=== PATIENT | male | born 1960 | race Caucasian/White ===

== ENCOUNTER 2016-08-04 19:36 | Emergency (ER) | payer SELFPAY ==
[~2016-08-04] VITALS: Ht 193 cm; Wt 117.9 kg
[2016-08-04 23:25] VITALS: BP 144/86
[2016-08-05] MEDS ORDERED: CYCLOBENZAPRINE HCL 10 MG TAB PO ONE
[2016-08-05] MEDS ORDERED: IBUPROFEN 600 MG TAB PO ONE
== END 2016-08-05 02:21 | disposition home or self-care (01) ==
LOC: ER 19:36
DX: S46.811A Strain of other muscles, fascia and tendons at shoulder and upper arm level, right arm, initial encounter (principal); S33.5XXA Sprain of ligaments of lumbar spine, initial encounter; V49.49XA Driver injured in collision with other motor vehicles in traffic accident, initial encounter; Y93.89 Activity, other specified; Y99.8 Other external cause status; Y92.410 Unspecified street and highway as the place of occurrence of the external cause

== ENCOUNTER 2017-10-22 22:31 | Inpatient (IN) | payer MEDICAID ==
[~2017-10-22] VITALS: Ht 193 cm; Wt 110.5 kg
[2017-10-22 23:10] LABS: Basophils # (auto) 0.1 uL; Basophils % (auto) 0.7 % (0.0-2.0); Eosinophils # (auto) 0.2 uL; Eosinophils % (auto) 1.6 % (0.0-7.0); Hemoglobin 17.4 g/dL (13.5-17.5); Lymphocytes # (auto) 3.5 uL; Lymphocytes % (auto) 35.7 % (10.0-50.0); Mean Corpuscular Hemoglobin 31.4 pg (28.0-32.0); Mean Corpuscular Hgb Conc. 34.9 g/dL (32.0-36.0); Monocytes # (auto) 0.6 uL; Monocytes % (auto) 6.3 % (0.0-12.0); Neutrophils # (auto) 5.5 uL; Neutrophils % (auto) 55.7 % (37.0-80.0); Nucleated Red Blood Cells % 0.2 %; Platelet Count (auto) 141 10^3/uL (140-450); Red Blood Cells 5.56 10^6/uL (4.5-5.90); Red Cell Distribution Width 12.9 % (11.8-14.3); White Blood Cell 9.8 10^3/uL (4.4-10.8)
[2017-10-22 23:27] LABS: Alanine Aminotransferase 39 U/L (16-61); Albumin 3.5 g/dL (3.4-5.0); Anion Gap 13 (5-15); Aspartate Aminotransferase 16 U/L (15-37); BUN/Creatinine Ratio 10.2; Blood Urea Nitrogen 11 mg/dL (7-18); Calcium 8.7 mg/dL (8.5-10.1); Carbon Dioxide 23 mmol/L (21-32); Chloride 103 mmol/L (98-107); GFR African American 91 mL/min; GFR Non-African American 75 mL/min; Glucose 322 mg/dL (74-106); Magnesium 2.1 mg/dL (1.6-2.6); Potassium 3.7 mmol/L (3.5-5.1); Sodium 139 mmol/L (136-145)
[2017-10-22 23:31] LABS: Alkaline Phosphatase 123 U/L (45-117); Bilirubin, Total 0.5 mg/dL (0.2-1.0); Total Protein 7.5 g/dL (6.4-8.2)
[2017-10-23] MEDS ORDERED: IPRATROPIUM BROM 0.5 MG/2.5ML INH SOL NEB ONE (02:45)
[2017-10-23] MEDS ORDERED: ALBUTEROL SULF 2.5 MG/0.5ML(0.5%) NEB SOLN NEB ONE (02:45)
[2017-10-23] MEDS ORDERED: FUROSEMIDE 20 MG/2 ML VIAL IV ONE (02:45)
[2017-10-23] MEDS ORDERED: DEXTROSE (50%) 50ML SYRG IV PRN (06:00)
[2017-10-23] MEDS: IPRATROPIUM BROM 0.5 MG/2.5ML INH SOL NEB SCH ×3 (07:08→18:13)
[2017-10-23] MEDS: ALBUTEROL SULF 2.5 MG/0.5ML(0.5%) NEB SOLN NEB SCH ×3 (07:08→18:13)
[2017-10-23] MEDS: InsuLIN REG 1unit/0.01ml Soln (100units/ml) SC SCH ×3 (07:09→17:25)
[2017-10-23] MEDS: ACCU-CHEK COMFORT CURVE STRIP VI SCH ×4 (07:10→21:44)
[2017-10-23 08:48] VITALS: BP 120/79
[2017-10-23 09:08] LABS: Basophils # (auto) 0.1 uL; Basophils % (auto) 0.6 % (0.0-2.0); Eosinophils # (auto) 0.2 uL; Eosinophils % (auto) 2.4 % (0.0-7.0); Hematocrit 49.2 % (41.0-53.0); Hemoglobin 16.6 g/dL (13.5-17.5); Lymphocytes # (auto) 4.1 uL; Lymphocytes % (auto) 42.1 % (10.0-50.0); Mean Corpuscular Hemoglobin 30.7 pg (28.0-32.0); Mean Corpuscular Hgb Conc. 33.8 g/dL (32.0-36.0); Mean Corpuscular Volume 90.7 fL (80.0-100.0); Monocytes # (auto) 0.6 uL; Monocytes % (auto) 6.4 % (0.0-12.0); Neutrophils # (auto) 4.8 uL; Neutrophils % (auto) 48.5 % (37.0-80.0); Nucleated Red Blood Cells % 0.1 %; Platelet Count (auto) 135 10^3/uL (140-450); Red Blood Cells 5.43 10^6/uL (4.5-5.90); White Blood Cell 9.8 10^3/uL (4.4-10.8)
[2017-10-23 09:27] LABS: Anion Gap 11 (5-15); Blood Urea Nitrogen 13 mg/dL (7-18); Calcium 8.6 mg/dL (8.5-10.1); Carbon Dioxide 25 mmol/L (21-32); Chloride 101 mmol/L (98-107); Cholesterol 198 mg/dL (< 200); GFR African American 91 mL/min; GFR Non-African American 75 mL/min; Glucose 280 mg/dL (74-106); HDL Cholesterol 41 mg/dL (40-59); Potassium 3.7 mmol/L (3.5-5.1); Sodium 137 mmol/L (136-145); Triglycerides 418 mg/dL (< 150)
[2017-10-23] MEDS: METOPROLOL SUCCINATE XL 50 MG TAB PO SCH (09:40)
[2017-10-23] MEDS: ASPirin-EC 81 mg tab PO SCH (09:40)
[2017-10-23] MEDS: PANTOPRAZOLE 40 MG TAB PO SCH (09:40)
[2017-10-23 16:11] LABS: Urine Bacteria NONE SEEN /hpf (None Seen); Urine Blood Negative /uL (Negative); Urine Specific Gravity 1.029 (1.001-1.035); Urine WBC <1 /hpf (0 - 3)
[2017-10-23] MEDS: glipiZIDE 5 MG TAB PO SCH (17:25)
[2017-10-23 22:00] VITALS: BP 107/56
[2017-10-23] MEDS ORDERED: InsuLIN REG 1unit/0.01ml Soln (100units/ml) SC SCH (22:00)
[2017-10-23] MEDS ORDERED: ATORVASTATIN 20 MG TAB PO SCH (22:00)
[2017-10-24] MEDS: IPRATROPIUM BROM 0.5 MG/2.5ML INH SOL NEB SCH ×4 (00:33→12:00)
[2017-10-24] MEDS: ALBUTEROL SULF 2.5 MG/0.5ML(0.5%) NEB SOLN NEB SCH ×4 (00:34→12:00)
[2017-10-24] MEDS ORDERED: SERDISK IN (01:44)
[2017-10-24] MEDS ORDERED: FLUT110A IN (01:44)
[2017-10-24] MEDS ORDERED: METO25TA4 PO (01:44)
[2017-10-24] MEDS ORDERED: METF-372 PO (01:44)
[2017-10-24] MEDS ORDERED: ALBUAER3 IN (01:44)
[2017-10-24 05:30] VITALS: BP 122/84
[2017-10-24 05:40] LABS: Basophils # (auto) 0 uL; Basophils % (auto) 0.6 % (0.0-2.0); Eosinophils # (auto) 0.2 uL; Eosinophils % (auto) 2.7 % (0.0-7.0); Hematocrit 44.3 % (41.0-53.0); Hemoglobin 15.6 g/dL (13.5-17.5); Lymphocytes # (auto) 3.1 uL; Lymphocytes % (auto) 39.2 % (10.0-50.0); Mean Corpuscular Hemoglobin 31.8 pg (28.0-32.0); Mean Corpuscular Hgb Conc. 35.2 g/dL (32.0-36.0); Mean Corpuscular Volume 90.4 fL (80.0-100.0); Monocytes # (auto) 0.5 uL; Neutrophils # (auto) 4.1 uL; Neutrophils % (auto) 51.5 % (37.0-80.0); Nucleated Red Blood Cells % 0.1 %; Platelet Count (auto) 108 10^3/uL (140-450); Red Blood Cells 4.91 10^6/uL (4.5-5.90); White Blood Cell 7.9 10^3/uL (4.4-10.8)
[2017-10-24 06:07] LABS: BUN/Creatinine Ratio 18.6; Calcium 8.6 mg/dL (8.5-10.1); Potassium 3.5 mmol/L (3.5-5.1)
[2017-10-24] MEDS: glipiZIDE 5 MG TAB PO SCH (06:28)
[2017-10-24] MEDS: ACCU-CHEK COMFORT CURVE STRIP VI SCH ×2 (06:28→11:30)
[2017-10-24] MEDS: InsuLIN REG 1unit/0.01ml Soln (100units/ml) SC SCH ×2 (06:28→11:30)
[2017-10-24 09:01] VITALS: BP 114/79
[2017-10-24] MEDS ORDERED: PIOGLITAZONE HYDROCHLORIDE 30 MG TAB PO SCH (10:00)
[2017-10-24] MEDS: METOPROLOL SUCCINATE XL 50 MG TAB PO SCH (10:00)
[2017-10-24] MEDS: PANTOPRAZOLE 40 MG TAB PO SCH (10:00)
[2017-10-24] MEDS ORDERED: ACETAMINOPHEN 325 MG TAB PO PRN (10:15)
[2017-10-24] MEDS: ASPirin-EC 81 mg tab PO SCH (11:03)
[2017-10-24 11:58] VITALS: BP 138/75
== END 2017-10-24 14:53 | disposition home or self-care (01) | DRG 140 ==
LOC: ER 22:35 → TELE 22:36 → TELE-CENTR 10-23 18:28
PROVIDERS: ADMIT Nurse Practitioner Family; ATTEND Internal Medicine
DX: J44.1 Chronic obstructive pulmonary disease with (acute) exacerbation (principal); I11.0 Hypertensive heart disease with heart failure; I50.9 Heart failure, unspecified; E88.81 Metabolic syndrome and other insulin resistance; I25.10 Atherosclerotic heart disease of native coronary artery without angina pectoris; F17.210 Nicotine dependence, cigarettes, uncomplicated; E66.01 Morbid (severe) obesity due to excess calories; E11.9 Type 2 diabetes mellitus without complications; R07.89 Other chest pain; I47.1 Supraventricular tachycardia; Z80.1 Family history of malignant neoplasm of trachea, bronchus and lung; Z82.49 Family history of ischemic heart disease and other diseases of the circulatory system; Z82.5 Family history of asthma and other chronic lower respiratory diseases; Z83.3 Family history of diabetes mellitus
CPT/HCPCS: 36415; 71045; 80048; 80053; 80061; 81001; 82962; 83036; 83735; 83880; 84484; 85025; 85379; 93005; 94640; 94761; 96374; J1815